=== PATIENT | female | born 1985 | race American Indian/Alaskan Native ===

== ENCOUNTER 2019-09-30 09:07 | Emergency (ER) | payer MEDICAID ==
[2019-09-30] MEDS ORDERED: KETOROLAC 60 MG/2 ML INJ IM ONE (10:09)
[2019-09-30] MEDS ORDERED: CYCLOBENZAPRINE 10 MG TAB PO ONE (10:09)
[2019-09-30] MEDS ORDERED: predniSONE 20 MG TAB PO ONE (10:09)
--- NOTE | 2019-09-30 10:50 | Emergency Department Report ---
ED Back Pain/Injury HPI - General Chief Complaint: Back Pain/Injury Stated Complaint: BACK PAIN Time Seen by Provider: 09/30/19 09:38 Source: patient Limitations: No Limitations - History of Present Illness Initial Comments: This is a 33-year-old male nontoxic, well nourished in appearance, no acute signs of distress presents to the ED with c/o of acute on chronic lower back pa in. Patient stated that the past 2 days she was moving and developed this pain. Patient states that pain radiates through to his right lower extremity. Patient denies any trauma. Denies any bladder or bowel instability. Patient denies any urinary symptoms. Denies any fever, chills, nausea, vomiting, headache, stiff neck, chest pain or shortness of breath. Patient denies any numbness or tingl ing. Denies any allergies. Denies significant past medical history. MD Complaint: back pain -: days(s) Similar Symptoms Previously: Yes Place: work Radiation: right leg Severity: mild Severity scale (0 -10): 8 Quality: aching Consistency: intermittent Improves With: immobilization, sitting upright Worsens With: movement, walking Context: while lifting, turning/twisting Associated Symptoms: denies other symptoms. denies: confusion, weakness, chest pain, numbness, difficulty walking, cough, difficulty urinating, diaphoresis, incontinence, fever/chills, constipation, headaches, abdominal pain, loss of appetite, malaise, nausea/vomiting, rash, seizure, shortness of breath, syncope - Related Data Home Medications Medication Instructions Recorded Confirmed Last Taken NIFEdipine 10 mg PO TID 04/15/15 04/15/15 04/15/15 18:00 10 mg Pnv with Ca,No.72/Iron/FA 1 tab PO DAILY 04/15/15 04/15/15 04/14/15 09:00 [ Plus Tablet] 1 tab Previous Rx's Medication Instructions Recorded Last Taken Type NIFEdipine XL [Procardia Xl] 30 mg PO QDAY #30 tablet 04/09/15 Unknown Rx Cyclobenzaprine [Flexeril] 10 mg PO QHS PRN #10 tablet 09/30/19 Unknown Rx Naproxen 500 mg PO Q8H PRN #20 tablet 09/30/19 Unknown Rx Allergies Allergy/AdvReac Type Severity Reaction Status Date / Time No Known Allergies Allergy Unverified 04/06/15 14:52 ED Review of Systems ROS: Stated complaint: BACK PAIN Other details as noted in HPI Constitutional: denies: chills, fever Eyes: denies: eye pain, eye discharge, vision change ENT: denies: ear pain, throat pain Respiratory: denies: cough, shortness of breath, wheezing Cardiovascular: denies: chest pain, palpitations Endocrine: no symptoms reported Gastrointestinal: denies: abdominal pain, nausea, diarrhea Genitourinary: denies: urgency, dysuria, discharge Musculoskeletal: back pain. denies: joint swelling, arthralgia Skin: denies: rash, lesions Neurological: denies: headache, weakness, paresthesias Psychiatric: denies: anxiety, depression Hematological/Lymphatic: denies: easy bleeding, easy bruising ED Past Medical Hx - Past Medical History Previous Medical History?: No Hx Hypertension: No Hx Congestive Heart Failure: No Hx Diabetes: No Hx Deep Vein Thrombosis: No Hx Renal Disease: No Hx Sickle Cell Disease: No Hx Seizures: No Hx Asthma: No Hx COPD: No Hx HIV: No - Surgical History Past Surgical History?: Yes Additional Surgical History: L ectopic 2011, R tubal ligation 07/2015 - Social History Smoking Status: Former Smoker Substance Use Type: None - Medications Home Medications: Home Medications Medication Instructions Recorded Confirmed Last Taken Type NIFEdipine XL [Procardia Xl] 30 mg PO QDAY #30 tablet 04/09/15 04/15/15 Unknown Rx NIFEdipine 10 mg PO TID 04/15/15 04/15/15 04/15/15 18:00 History 10 mg Pnv with Ca,No.72/Iron/FA 1 tab PO DAILY 04/15/15 04/15/15 04/14/15 09:00 History [ Plus Tablet] 1 tab Cyclobenzaprine [Flexeril] 10 mg PO QHS PRN #10 tablet 09/30/19 Unknown Rx Naproxen 500 mg PO Q8H PRN #20 tablet 09/30/19 Unknown Rx ED Physical Exam - General Limitations: No Limitations General appearance: alert, in no apparent distress - Head Head exam: Present: atraumatic, normocephalic - Neck Neck exam: Present: normal inspection, full ROM. Absent: tenderness, meningismus, lymphadenopathy - Extremities Exam Extremities exam: Present: normal inspection, full ROM, normal capillary refill. Absent: tenderness - Back Exam Back exam: Present: normal inspection, full ROM, paraspinal tenderness (right sided lumbar paraspinal). Absent: tenderness, CVA tenderness (R), CVA tenderness (L), muscle spasm, vertebral tenderness, rash noted - Expanded Back Exam Expanded Back exam: Absent: saddle anesthesia Back exam: Negative Straight Leg Raising: Right, Left - Neurological Exam Neurological exam: Present: alert, oriented X3, normal gait - Psychiatric Psychiatric exam: Present: normal affect, normal mood - Skin Skin exam: Present: warm, dry, intact, normal color. Absent: rash ED Course - Reevaluation(s) Reevaluation #1: 09/30/19 10:48 Patient is speaking in full sentences with no signs of distress noted. ED Medical Decision Making - Medical Decision Making This is a 33-year-old female that presents with low back strain. Patient is stable was examined by me. There is no spinal tenderness. There is no cauda equina syndrome during examination. X-ray is unremarkable and dictated by radiologist. Patient is notified of results with no questions noted by the patient. No bladder or bowel instability. Patient received Toradol 60 mg, prednisone, flexeril in the ED which stated that her symptoms has resolved and subsided. Patient is discharged with muscle relaxant and Naproxen. Patient was instructed not to operate any machinery while taking muscle relaxant as they cause her drowsiness. Stated her will drive her home after discharge due to possibel drowiness of Flexeril. Patient was referred to Follow-up with a primary care doctor in 3-5 days or if symptoms worsen and continue return to emergency room as soon as possible. At time of discharge, the patient does not seem toxic or ill in appearance. No acute signs of distress noted. Patient agrees to discharge treatment plan of care. No further questions noted by the patient. This chart is dictated with using [employer] [facility] [employer] Critical care attestation.: If time is entered above; I have spent that time in minutes in the direct care of this critically ill patient, excluding procedure time. ED Disposition Clinical Impression: Low back strain Qualifiers: Encounter type: initial encounter Qualified Code(s): S39.012A - Strain of muscle, fascia and tendon of lower back, initial encounter Disposition: TO HOME OR SELFCARE Is pt being admited?: No Does the pt Need Aspirin: No Condition: Stable Instructions: Low Back Strain (ED), Cyclobenzaprine (By mouth) Additional Instructions: Follow-up with your primary care doctor in 3-5 days or if symptoms worsen such as bladder or bowel stability, chest pain, short of breath, numbness or tingling sensation in extremities, headache, dizziness, visual changes, nausea vomiting, or abdominal pain, return back to emergency room as was possible. Take ibuprofen and Flexeril as prescribed. Do not operate heavy machinery while taking Flexeril due to sedation Prescriptions: Cyclobenzaprine [Flexeril] 10 mg PO QHS PRN #10 tablet PRN Reason: Muscle Spasm Naproxen 500 mg PO Q8H PRN #20 tablet PRN Reason: Pain , Severe (7-10) Referrals: PRIMARY CAREMD [Referring] - 3-5 Days SPENCER PITTMAN MD [Staff Physician] - 3-5 Days [facility] [Outside] - 3-5 Days [facility] [Outside] - 3-5 Days Forms: Work/School Release Form(ED)
[2019-09-30 10:55] VITALS: BP 121/63
[2019-09-30 11:20] LABS: Bacteria,Urine 1+ /HPF (Negative); Bilirubin,Urine NEG (Negative); Blood,Urine NEG (Negative); Color,Urine Straw (Yellow); Mucus,Urine FEW /HPF; Protein,Urine <15 mg/dL mg/dL (Negative); Urobilinogen,Urine < 2.0 mg/dL (<2.0); WBC,Urine < 1.0 /HPF (0.0-6.0)
[2019-09-30 11:27] LABS: HCG Qualitative,Urine Negative (Negative)
--- NOTE | 2019-09-30 11:57 | XRay Report ---
LUMBOSACRAL SPINE 3 VIEWS INDICATION / CLINICAL INFORMATION: Lower back pain of unknown origin. May have pulled something at work yesterday. COMPARISON: None available. FINDINGS: BONES / JOINT(S): The vertebral body heights and disc spaces are well-maintained. The pedicles are in tact and the SI joints are normal. There is no evidence of fracture, subluxation or destructive lesio n. SOFT TISSUES: No significant abnormality. ADDITIONAL FINDINGS: None. IMPRESSION: Negative study. Signer Name: Tod Wayne MD Signed: 09/30/2019 11:52 AM Workstation Name: [id number]
== END 2019-09-30 13:44 | disposition home or self-care (01) ==
LOC: ED 09:07
DX: S39.012A Strain of muscle, fascia and tendon of lower back, initial encounter (principal); G89.29 Other chronic pain; Z79.899 Other long term (current) drug therapy; Z98.51 Tubal ligation status; Z87.891 Personal history of nicotine dependence; X50.0XXA Overexertion from strenuous movement or load, initial encounter; Y93.89 Activity, other specified; Y92.69 Other specified industrial and construction area as the place of occurrence of the external cause; Y99.8 Other external cause status
CPT/HCPCS: 72100; 81001; 81025; 96372; 99284; J1885; J7512

== ENCOUNTER 2021-09-25 21:38 | Emergency (ER) | payer MEDICAID, OTHER ==
[2021-09-25 23:14] VITALS: BP 124/76
[2021-09-26] MEDS ORDERED: predniSONE 50 MG TAB PO ONE (00:34)
[2021-09-26] MEDS ORDERED: IBUPROFEN 600 MG TAB PO ONE (00:34)
[2021-09-26] MEDS ORDERED: ACETAMINOPHEN 500 MG TAB PO ONE (00:34)
--- NOTE | 2021-09-26 01:06 | Emergency Department Report ---
ED Upper Extremity Inj HPI - General Chief Complaint: Extremity Injury, Upper Stated Complaint: SWELLING IN HAND Source: patient Mode of arrival: Ambulatory Limitations: No Limitations - History of Present Illness Initial Comments: Patient is a 35-year-old -[place] Citizen female with no past medical history who presents to the ED with complaint of acute onset persistent severe left wrist pain after heavy lifting at work about 1 week ago. Patient states that she is unable to perform any active range of motion with the left wrist because of worsening pain. Patient states that the pain radiates from her left wrist distally to her left hand and proximally to her left forearm. Patient denies fall, numbness and tingling or weakness of left, dizziness, syncope, nausea and vomiting, traumatic injury, chest pain, fever, chills, nausea and vomiting. MD Complaint: Injury to:: left (Left wrist pain, heavy lifting at work), wrist -: Sudden, week(s) (1) Other Extremity Injury: Wrist: Left (Left wrist pain) Other Injuries: none Handedness: right Place: work Severity scale (0 -10): 8 Improves With: none Worsens With: movement of extremity Context: injury, other (Heavy lifting at work) Associated Symptoms: denies other symptoms. denies: weakness, numbness, neck pain, suspects foreign body, nausea/vomiting, heard/felt popping sensat Treatments Prior to Arrival: NSAIDS - Related Data Home Medications Medication Instructions Recorded Confirmed Last Taken NIFEdipine 10 mg PO TID 04/15/15 04/15/15 04/15/15 18:00 10 mg Pnv with Ca,No.72/Iron/FA 1 tab PO DAILY 04/15/15 04/15/15 04/14/15 09:00 [ Plus Tablet] 1 tab Previous Rx's Medication Instructions Recorded Last Taken Type NIFEdipine XL [Procardia Xl] 30 mg PO QDAY #30 tablet 04/09/15 Unknown Rx Cyclobenzaprine [Flexeril] 10 mg PO QHS PRN #10 tablet 09/30/19 Unknown Rx Naproxen 500 mg PO Q8H PRN #20 tablet 09/30/19 Unknown Rx Ibuprofen [Motrin] 800 mg PO Q8HR PRN #30 tablet 09/26/21 Unknown Rx predniSONE [Deltasone] 40 mg PO QDAY #10 tab 09/26/21 Unknown Rx Allergies Allergy/AdvReac Type Severity Reaction Status Date / Time No Known Allergies Allergy Verified 09/25/21 23:14 ED Review of Systems ROS: Stated complaint: SWELLING IN HAND Other details as noted in HPI Constitutional: denies: chills, fever Eyes: denies: eye pain, eye discharge, vision change ENT: denies: ear pain, throat pain Respiratory: denies: cough, shortness of breath, wheezing Cardiovascular: denies: chest pain, palpitations Endocrine: no symptoms reported Gastrointestinal: denies: abdominal pain, nausea, diarrhea Genitourinary: denies: urgency, dysuria, discharge Musculoskeletal: arthralgia (Left wrist pain). denies: back pain, joint swelling Skin: denies: rash, lesions Neurological: denies: headache, weakness, paresthesias Psychiatric: denies: anxiety, depression Hematological/Lymphatic: denies: easy bleeding, easy bruising ED Past Medical Hx - Past Medical History Hx Hypertension: No Hx Congestive Heart Failure: No Hx Diabetes: No Hx Deep Vein Thrombosis: No Hx Renal Disease: No Hx Sickle Cell Disease: No Hx Seizures: No Hx Asthma: No Hx COPD: No Hx HIV: No - Surgical History Past Surgical History?: Yes Additional Surgical History: L ectopic 2011, R tubal ligation 07/2015 - Social History Smoking Status: Never Smoker Substance Use Type: None - Medications Home Medications: Home Medications Medication Instructions Recorded Confirmed Last Taken Type NIFEdipine XL [Procardia Xl] 30 mg PO QDAY #30 tablet 04/09/15 04/15/15 Unknown Rx NIFEdipine 10 mg PO TID 04/15/15 04/15/15 04/15/15 18:00 History 10 mg Pnv with Ca,No.72/Iron/FA 1 tab PO DAILY 04/15/15 04/15/15 04/14/15 09:00 History [ Plus Tablet] 1 tab Cyclobenzaprine [Flexeril] 10 mg PO QHS PRN #10 tablet 09/30/19 Unknown Rx Naproxen 500 mg PO Q8H PRN #20 tablet 09/30/19 Unknown Rx Ibuprofen [Motrin] 800 mg PO Q8HR PRN #30 tablet 09/26/21 Unknown Rx predniSONE [Deltasone] 40 mg PO QDAY #10 tab 09/26/21 Unknown Rx ED Physical Exam - General Limitations: No Limitations General appearance: alert, in no apparent distress - Head Head exam: Present: atraumatic, normocephalic, normal inspection - Eye Eye exam: Present: normal appearance, PERRL, EOMI Pupils: Present: normal accommodation - ENT ENT exam: Present: normal exam, normal orophraynx, mucous membranes moist, TM's normal bilaterally, normal external ear exam - Neck Neck exam: Present: normal inspection, full ROM - Respiratory Respiratory exam: Present: normal lung sounds bilaterally. Absent: respiratory distress, wheezes, rales, rhonchi, chest wall tenderness, accessory muscle use, decreased breath sounds, prolonged expiratory - Cardiovascular Cardiovascular Exam: Present: regular rate, normal rhythm, normal heart sounds. Absent: systolic murmur, diastolic murmur, rubs, gallop - GI/Abdominal GI/Abdominal exam: Present: soft, normal bowel sounds. Absent: tenderness, guarding, hyperactive bowel sounds, organomegaly - Extremities Exam Extremities exam: Present: normal inspection, tenderness (Palpable left wrist tenderness with limited range of motion due to pain), normal capillary refill. Absent: full ROM (Limited range of motion of left wrist due to pain), pedal edema, joint swelling, calf tenderness - Back Exam Back exam: Present: normal inspection, full ROM. Absent: tenderness, CVA tenderness (R), CVA tenderness (L), muscle spasm, paraspinal tenderness - Neurological Exam Neurological exam: Present: alert, oriented X3, CN II-XII intact, normal gait, reflexes normal - Psychiatric Psychiatric exam: Present: normal affect, normal mood - Skin Skin exam: Present: warm, dry, intact, normal color. Absent: rash ED Course Vital Signs 09/25/21 09/26/21 09/26/21 23:11 00:51 00:52 Temperature 98.8 F Pulse Rate 70 Respiratory 18 18 18 Rate Blood Pressure 124/76 O2 Sat by Pulse 100 Oximetry ED Medical Decision Making - Radiology Data Radiology results: report reviewed, image reviewed [facility] [address] [place] [address] XRay Report Signed Patient: SOOLMON TARIQ MR#: [id number] : 1985 Acct:[id number] Age/Sex: 35 / F ADM Date: 09/25/21 Loc: ED Attending Dr: Ordering Physician: DANYEL SNELL Date of Service: 10/26/21 Procedure(s): XR wrist 3+V LT Accession Number(s): [id number] cc: DANYEL SNELL Fluoro Time In Minutes: Left wrist 4 views INDICATION: Pain FINDINGS: Alignment appears normal. No acute fracture dislocation. No focal soft tissue swelling Signer Name: Tej Carvalho MD Signed: 09/26/2021 1:17 AM Workstation Name: [id number] Transcribed By: CW Dictated By: MAC CARVALHO MD Electronically Authenticated By: MAC CARVALHO MD Signed Date/Time: 09/26/21116 DD/ 6 TD/TT: - Medical Decision Making This is a 35-year-old -[place] Citizen female with no past medical history who presents to the ED with complaint of acute onset persistent severe left wrist pain after heavy lifting at work about 1 week ago. Patient states that she is unable to perform any active range of motion with the left wrist because of worsening pain. Patient states that the pain radiates from her left wrist distally to her left hand and proximally to her left forearm. In the ED, patient is alert and oriented x3 and is not in any distress. Patient however appears to be in significant pain. Patient was treated for pain in the ED and left wrist x-ray showed no acute fractures or subluxations. Patient the history and physical exam findings, patient symptoms are likely musculoskeletal following heavy lifting at work repeatedly. The left wrist was splinted with a Velcro splint, and the patient was discharged home on pain medications and advised to follow-up with her primary care physician in 7 to 10 days for reevaluation or return to the ED immediately if symptoms get worse. - Differential Diagnosis Wrist fracture; wrist sprain; wrist muscle strain; tendinitis; gout Critical care attestation.: If time is entered above; I have spent that time in minutes in the direct care of this critically ill patient, excluding procedure time. ED Disposition Clinical Impression: Tendinitis of left wrist Sprain of left wrist Qualifiers: Encounter type: initial encounter Qualified Code(s): S63.502A - Unspecified sprain of left wrist, initial encounter Muscle strain of left wrist Qualifiers: Encounter type: initial encounter Qualified Code(s): S66.912A - Strain of unspecified muscle, fascia and tendon at wrist and hand level, left hand, initial encounter Disposition: HOME / SELF CARE / HOMELESS Is pt being admited?: No Does the pt Need Aspirin: No Condition: Stable Instructions: Muscle Strain, [id number], Wrist Sprain, Adult, Tendinitis, [id number] Additional Instructions: The left wrist x-ray showed no acute fractures or subluxations. Your injuries are likely musculoskeletal versus inflammation of your tendons of the left wrist. Therefore take medications with food, drink plenty of fluids and follow- up with your primary care physician in 7 to 10 days for reevaluation. Return to the ED immediately if symptoms get worse. Prescriptions: predniSONE [Deltasone] 40 mg PO QDAY #10 tab Ibuprofen [Motrin] 800 mg PO Q8HR PRN #30 tablet PRN Reason: Pain , Severe (7-10) Referrals: [facility] [Provider Group] - 7-10 days Forms: Work/School Release Form(ED) Time of Disposition: 01:13 Print Language: MAURITIAN
--- NOTE | 2021-09-26 01:22 | XRay Report ---
Left wrist 4 views INDICATION: Pain FINDINGS: Alignment appears normal. No acute fracture dislocation. No focal soft tissue swelling Signer Name: Tej He MD Signed: 09/26/2021 1:17 AM Workstation Name: [id number]
== END 2021-09-26 03:04 | disposition home or self-care (01) ==
LOC: ED 21:38
DX: S63.592A Other specified sprain of left wrist, initial encounter (principal); S66.912A Strain of unspecified muscle, fascia and tendon at wrist and hand level, left hand, initial encounter; M77.9 Enthesopathy, unspecified; Z98.890 Other specified postprocedural states; Z79.899 Other long term (current) drug therapy; X50.1XXA Overexertion from prolonged static or awkward postures, initial encounter; Y93.89 Activity, other specified; Y92.89 Other specified places as the place of occurrence of the external cause; Y99.8 Other external cause status
CPT/HCPCS: 29125; 73110; 99283; J7512

== ENCOUNTER 2022-04-12 11:10 | Emergency (ER) | payer MEDICAID ==
[2022-04-12 12:33] VITALS: BP 138/77
--- NOTE | 2022-04-12 16:22 | Emergency Department Report ---
ED Back Pain/Injury HPI - General Chief Complaint: Back Pain/Injury Stated Complaint: KIDNEY PAIN/HIGH BP Time Seen by Provider: 04/12/22 14:35 Source: patient Limitations: No Limitations - History of Present Illness Initial Comments: This is a 36-year-old female nontoxic, well nourished in appearance, no acute signs of distress presents to the ED with c/o of left flank pain x several days. Denies any radiation of pain. Patient denies any injuries or trauma. Denies any bladder or bowel instability. Patient denies any urinary symptoms. Denies any fever, chills, nausea, vomiting, headache, stiff neck, chest pain or shortness of breath. Patient denies any numbness or tingling. Denies any allergies. Denies significant past medical history. -: days(s) Place: home Radiation: none Severity: mild Severity scale (0 -10): 3 Quality: aching Improves With: none Worsens With: none Associated Symptoms: denies other symptoms. denies: confusion, weakness, chest pain, numbness, difficulty walking, cough, difficulty urinating, diaphoresis, incontinence, fever/chills, constipation, headaches, abdominal pain, loss of appetite, malaise, nausea/vomiting, rash, seizure, shortness of breath, syncope - Related Data Home Medications Medication Instructions Recorded Confirmed Last Taken NIFEdipine 10 mg PO TID 04/15/15 04/15/15 04/15/15 18:00 10 mg Pnv with Ca,No.72/Iron/FA 1 tab PO DAILY 04/15/15 04/15/15 04/14/15 09:00 [ Plus Tablet] 1 tab Previous Rx's Medication Instructions Recorded Last Taken Type NIFEdipine XL [Procardia Xl] 30 mg PO QDAY #30 tablet 04/09/15 Unknown Rx Cyclobenzaprine [Flexeril] 10 mg PO QHS PRN #10 tablet 09/30/19 Unknown Rx Naproxen 500 mg PO Q8H PRN #20 tablet 09/30/19 Unknown Rx Ibuprofen [Motrin] 800 mg PO Q8HR PRN #30 tablet 09/26/21 Unknown Rx predniSONE [Deltasone] 40 mg PO QDAY #10 tab 09/26/21 Unknown Rx Allergies Allergy/AdvReac Type Severity Reaction Status Date / Time No Known Allergies Allergy Verified 09/25/21 23:14 ED Review of Systems ROS: Stated complaint: KIDNEY PAIN/HIGH BP Other details as noted in HPI Comment: All other systems reviewed and negative Constitutional: denies: chills, fever Eyes: denies: eye pain, eye discharge, vision change ENT: denies: ear pain, throat pain Respiratory: denies: cough, shortness of breath, wheezing Cardiovascular: denies: chest pain, palpitations Endocrine: no symptoms reported Gastrointestinal: denies: abdominal pain, nausea, diarrhea Genitourinary: denies: urgency, dysuria, discharge Musculoskeletal: other (flank pain). denies: back pain, joint swelling, arthralgia Skin: denies: rash, lesions Neurological: denies: headache, weakness, paresthesias Psychiatric: denies: anxiety, depression Hematological/Lymphatic: denies: easy bleeding, easy bruising ED Past Medical Hx - Past Medical History Hx Hypertension: No Hx Congestive Heart Failure: No Hx Diabetes: No Hx Deep Vein Thrombosis: No Hx Renal Disease: No Hx Sickle Cell Disease: No Hx Seizures: No Hx Asthma: No Hx COPD: No Hx HIV: No - Surgical History Additional Surgical History: L ectopic 2011, R tubal ligation 07/2015 - Social History Smoking Status: Never Smoker Substance Use Type: Alcohol - Medications Home Medications: Home Medications Medication Instructions Recorded Confirmed Last Taken Type NIFEdipine XL [Procardia Xl] 30 mg PO QDAY #30 tablet 04/09/15 04/15/15 Unknown Rx NIFEdipine 10 mg PO TID 04/15/15 04/15/15 04/15/15 18:00 History 10 mg Pnv with Ca,No.72/Iron/FA 1 tab PO DAILY 04/15/15 04/15/15 04/14/15 09:00 History [ Plus Tablet] 1 tab Cyclobenzaprine [Flexeril] 10 mg PO QHS PRN #10 tablet 09/30/19 Unknown Rx Naproxen 500 mg PO Q8H PRN #20 tablet 09/30/19 Unknown Rx Ibuprofen [Motrin] 800 mg PO Q8HR PRN #30 tablet 09/26/21 Unknown Rx predniSONE [Deltasone] 40 mg PO QDAY #10 tab 09/26/21 Unknown Rx ED Physical Exam - General Limitations: No Limitations General appearance: alert, in no apparent distress - Head Head exam: Present: atraumatic, normocephalic - Eye Eye exam: Present: normal appearance - Neck Neck exam: Present: normal inspection, full ROM. Absent: lymphadenopathy - Respiratory Respiratory exam: Absent: respiratory distress - Cardiovascular Cardiovascular Exam: Present: regular rate - GI/Abdominal GI/Abdominal exam: Present: soft, normal bowel sounds. Absent: distended, tenderness, guarding, rebound, rigid, diminished bowel sounds - Extremities Exam Extremities exam: Present: full ROM - Back Exam Back exam: Present: normal inspection, full ROM, tenderness, CVA tenderness (L), paraspinal tenderness (left side thoracic paraspinal). Absent: CVA tenderness (R), muscle spasm, vertebral tenderness, rash noted - Neurological Exam Neurological exam: Present: alert, oriented X3, normal gait - Psychiatric Psychiatric exam: Present: normal affect, normal mood - Skin Skin exam: Present: warm, dry, intact, normal color. Absent: rash ED Course Vital Signs 04/12/22 12:29 Temperature 98.1 F Pulse Rate 63 Respiratory 18 Rate Blood Pressure 138/77 [Left] O2 Sat by Pulse 99 Oximetry - Reevaluation(s) Reevaluation #1: 04/12/22 16:20 Patient is speaking in full sentences with no signs of distress noted. ED Medical Decision Making - Medical Decision Making 36 old female that presents with left flank pain. Patient is stable and was examined by me. UA and test has been ordered. At this time patient stated she has emergency and has to leave. I educated patient of my concerns for further evaluation and treatment and appropriate disposition but patient still refused and sign AGAINST MEDICAL ADVICE. I spent several times educated patient about risks of not properly diagnosing but patient still refused. Patient was instructed to follow-up with a primary care doctor as soon as possible or if symptoms worsen and continue return to emergency room as soon as possible. At time of signing AMA, the patient does not seem toxic or ill in appearance. No acute signs of distress noted. No further questions noted by the patient. Critical care attestation.: If time is entered above; I have spent that time in minutes in the direct care of this critically ill patient, excluding procedure time. ED Disposition Clinical Impression: Left flank pain Disposition: LEFT AGAINST MEDICAL ADVICE Is pt being admited?: No Does the pt Need Aspirin: No Condition: Undetermined Additional Instructions: Follow-up with a primary care doctor as soon as possible or if symptoms worsen and continue return to emergency room as soon as possible. Your condition may be serious as instructed and educated today in the ER but you decided to leave AGAINST MEDICAL ADVICE. It is highly recommended to see a provider as soon as possible to rule out serious complications that was described to you during your ED stay. Referrals: PRIMARY CARE, [Referring] - TUSHAR WHITING MD [Staff Physician] - [place]
== END 2022-04-12 16:59 | disposition left against medical advice (07) ==
LOC: ED 11:10
DX: R10.9 Unspecified abdominal pain (principal); F10.20 Alcohol dependence, uncomplicated
CPT/HCPCS: 99282